=== PATIENT | female | born 1985 | race Caucasian/White ===

== ENCOUNTER → 2017-07-01 | Outpatient (CLI) | payer OTHER ==
[~2017-07-01] MED LIST: CEPH500; CEPH500 PO; CIPR500 PO; CYCL10 PO; HYDACE5; Hydrocodone-Ap1 EA23 PO; IBUP400 PO; Percocet 5-3251 EACH PO; RXCEPH500 PO; RXSULTRIDS PO; SULTRIDS PO; Spironolactone100 MG PO; Tizanidine HCl2 MG PO
[2017-07-03 14:39] LABS: HPV Genotype 16 Not Detected (NOTDET); HPV Genotype 18 Not Detected (NOTDET)
[2017-07-07 08:10] LABS: HPV High Risk Other Detected (NOTDET)
== END ==
LOC: LAB 16:56
PROVIDERS: Registered Nurse Community Health
DX: Z12.4 Encounter for screening for malignant neoplasm of cervix (principal)
CPT/HCPCS: 87624; G0123

== ENCOUNTER → 2020-03-15 | Outpatient (CLI) | payer OTHER | LOC: PLD 08:21 → LAB SHORT 08:21 | DX: N87.0 Mild cervical dysplasia (principal) | CPT/HCPCS: 88305 ==

== ENCOUNTER 2020-10-05 08:01 | Day surgery (SDC) | payer OTHER ==
[~2020-10-05] VITALS: Ht 162.6 cm; Wt 77.0 kg
[2020-10-05] MEDS ORDERED: LOSA25 (08:45)
--- NOTE | 2020-10-05 08:59 | NUR ---
10/05/20 0859 Alana Ramirez 2 IV ATTE,PTS BY [facility], 1ST IN LEFT FOREARM INFILTRATED, 2ND IN LEFT AC WAS SUCCESSFUL
--- NOTE | 2020-10-05 11:02 | NUR ---
10/05/20 1102 Kyle Montelongo 0.15MG EPI ADDED TO 30ML 0.5% BUPIVACAINE PL TO ACHIEVE SOLUTION OF 1:200,000. 6ML OF THIS SOLUTION INJ INTO OPSITE AT 09 BY MALCOM.
== END 2020-10-05 10:26 | disposition home or self-care (01) ==
LOC: ORSCSDS 08:01
PROVIDERS: Obstetrics & Gynecology
PROC: 0UBC7ZX Excision of Cervix, Via Natural or Artificial Opening, Diagnostic (ICD-10-PCS; principal; 2020-10-05 09:15)
DX: N87.0 Mild cervical dysplasia (principal); R87.810 Cervical high risk human papillomavirus (HPV) DNA test positive; I10 Essential (primary) hypertension; F17.210 Nicotine dependence, cigarettes, uncomplicated; Z79.899 Other long term (current) drug therapy
CPT/HCPCS: 88305; J0171; J0690; J1100; J2250; J2405; J2704; J3010; J7120